=== PATIENT | female | born 1940 | race Caucasian/White ===

== ENCOUNTER 2018-05-01 10:45 | Outpatient (CLI) | payer MEDICARE | END 2018-05-01 10:46 | disposition home or self-care (01) | LOC: BICMAMMO 10:45 | PROVIDERS: ATTEND Family Medicine | DX: Z12.31 Encounter for screening mammogram for malignant neoplasm of breast (principal); Z80.3 Family history of malignant neoplasm of breast | CPT/HCPCS: 77063; 77067 ==

== ENCOUNTER 2018-08-02 09:30 | Inpatient (IN) | payer MEDICARE ==
[2018-08-02 10:24] VITALS: BMI 25.0
[2018-08-07] MEDS ORDERED: Fentanyl 250 MCG/5 ML VIAL ONE (06:24)
[2018-08-07] MEDS ORDERED: Sodium Chloride 0.9% 100 ML ONE (06:32)
[2018-08-07] MEDS ORDERED: cefOXitin 2 GM VIAL ONE ×2 (06:32→09:27)
[2018-08-07] MEDS ORDERED: Dexamethasone 4 mg/ml Vial ONE (06:39)
[2018-08-07] MEDS ORDERED: Fentanyl 100 MCG/2 ML VIAL ONE (06:39)
[2018-08-07] MEDS ORDERED: Midazolam HCl 2 mg/2 ml Vial ONE (06:39)
[2018-08-07 07:19] LABS: Anion Gap 13 mmol/L (10-20); BUN (Urea Nitrogen) 13 mg/dL (9.8-20.1); Calc. Creatinine Clearance 43 mL/min (70-130); Calcium 9.8 mg/dL (7.8-10.44); Carbon Dioxide 23 mmol/L (23-31); Chloride 106 mmol/L (98-107); Estimated GFR-MDRD 48; Glucose 103 mg/dL (83-110); Potassium 3.5 mmol/L (3.5-5.1); Sodium 138 mmol/L (136-145)
[2018-08-07] MEDS ORDERED: Promethazine HCl 25 MG/ML VIAL SLOW IVP PRN (09:03)
[2018-08-07] MEDS ORDERED: Promethazine HCl 25 MG/ML VIAL IM PRN ×2 (09:03→17:31)
[2018-08-07] MEDS ORDERED: HYDROmorphone 2 MG/ML VIAL SLOW IVP PRN (09:03)
[2018-08-07] MEDS ORDERED: Ondansetron HCl/PF 4 MG/2 ML Vial IVP PRN (09:03)
[2018-08-07] MEDS ORDERED: HYDROmorphone 2 MG/ML VIAL ONE (10:22)
[2018-08-07] MEDS ORDERED: Bupivacaine HCl 0.5%/Epinephrine 1:200,000/PF 30 ml Vial ONE (13:32)
[2018-08-07] MEDS ORDERED: PROPOFOL 200 MG/20 ML VIAL ONE (13:37)
[2018-08-07] MEDS ORDERED: ePHEDrine/0.9% NaCl/PF SYRINGE 50 mg/10 ml ONE (13:37)
[2018-08-07] MEDS ORDERED: Glycopyrrolate 0.2 MG/ML 5 ML SYRINGE ONE (13:37)
[2018-08-07] MEDS ORDERED: Lidocaine 1% PF 5 ML VIAL ONE (13:37)
[2018-08-07] MEDS ORDERED: Ketorolac Tromethamine 30 MG/ML VIAL ONE (13:37)
[2018-08-07] MEDS ORDERED: Ondansetron PF 4 MG/2 ML Vial ONE (13:37)
[2018-08-07] MEDS ORDERED: PHENYLEPHRINE-NS 100 MCG/ML 10 ML SYRINGE ONE (13:37)
[2018-08-07] MEDS ORDERED: Dexamethasone 20 MG/5 ML VIAL ONE (13:37)
[2018-08-07] MEDS ORDERED: hydrALAZINE 20 MG/ML VIAL SLOW IVP PRN (17:31)
[2018-08-07] MEDS ORDERED: Ondansetron PF 4 MG/2 ML Vial IVP PRN (17:31)
[2018-08-07] MEDS: Acetaminophen 1,000 MG in Premix Bag 1 BAG IVPB SCH ×2 (17:56→23:27)
[2018-08-07] MEDS: D5 1/2 NS w/20 mEq KCL 1,000 ML IV SCH (17:59)
[2018-08-07] MEDS: cefOXitin 2 GM in Sodium Chloride 0.9% 100 ML IVPB SCH (18:17)
[2018-08-07] MEDS: Famotidine 20 MG TAB PO SCH (20:40)
[2018-08-07] MEDS: Famotidine/PF 20 mg/2ml Vial SLOW IVP SCH (20:40)
[2018-08-07] MEDS: Fentanyl 100 MCG/2 ML VIAL SLOW IVP PRN (20:41)
[2018-08-08] MEDS: Fentanyl 100 MCG/2 ML VIAL SLOW IVP PRN ×2 (01:01→20:29)
[2018-08-08] MEDS: cefOXitin 2 GM in Sodium Chloride 0.9% 100 ML IVPB SCH (02:06)
[2018-08-08] MEDS: D5 1/2 NS w/20 mEq KCL 1,000 ML IV SCH ×2 (02:07→11:49)
[2018-08-08] MEDS: Acetaminophen 1,000 MG in Premix Bag 1 BAG IVPB SCH ×2 (05:09→11:54)
[2018-08-08 05:49] LABS: #Basophils 0.1 thou/uL (0.0-0.2); #Lymphocytes 1.8 thou/uL (1.20-3.40); #Neutrophils 12.9 thou/uL (1.40-6.50); %Basophils 0.3 % (0.0-1.0); %Eosinophils 0.1 % (0.0-10.0); %Lymphocytes 11.2 % (21.0-51.0); %Monocytes 6.5 % (0.0-10.0); %Neutrophils 81.9 % (42.0-75.0); Hemoglobin 10.8 g/dL (12.0-16.0); Mean Corpuscular HGB CONC 32.4 g/dL (32.0-36.0); Mean Corpuscular Volume 95.8 fL (78.0-98.0); Platelet Count 240 thou/uL (130-400); Red Blood Cell (RBC) Count 3.48 mill/uL (4.20-5.40); White Blood Cell (WBC) Count 15.8 thou/uL (4.8-10.8)
[2018-08-08 06:12] LABS: Anion Gap 9 mmol/L (10-20); BUN (Urea Nitrogen) 15 mg/dL (9.8-20.1); Calc. Creatinine Clearance 39 mL/min (70-130); Calcium 8.5 mg/dL (7.8-10.44); Carbon Dioxide 22 mmol/L (23-31); Chloride 108 mmol/L (98-107); Estimated GFR-MDRD 43; Glucose 159 mg/dL (83-110); Potassium 4.4 mmol/L (3.5-5.1); Sodium 135 mmol/L (136-145)
[2018-08-08] MEDS ORDERED: Enoxaparin Sodium 40 MG/0.4 ML SYRINGE SC SCH (09:00)
--- NOTE | 2018-08-08 11:34 | PRG ---
DATE OF SERVICE: 08/08/2018 SUBJECTIVE: Postop day #1, subtotal colectomy. The patient has mild nausea. For the most part, she is clear liquids. She did not ambulate in the billings yesterday evening and has not yet today. However, she has been up in the room without difficulty. Her pain is controlled. PHYSICAL EXAMINATION: VITAL SIGNS: Pulse is 70, respirations 18, temperature is 97.5, blood pressure 139/64. ABDOMEN: Soft, minimally distended. Wounds are healing well. LABORATORY DATA: White cell count is 15, hemoglobin is 10, platelet count is 240. Sodium 135, creat inine 1.21, glucose 159. ASSESSMENT: Postop day #1, subtotal colectomy. PLAN: She needs to be in the billings ambulating. We will advance to full liquid diet this evening for dinner if she is tolerating the clears . Hold Lovenox today. She had a slight decrease in her hemoglobin overnight.
[2018-08-08] MEDS: Famotidine 20 MG TAB PO SCH (20:29)
[2018-08-08] MEDS: Famotidine/PF 20 mg/2ml Vial SLOW IVP SCH (20:29)
[2018-08-09] MEDS: D5 1/2 NS w/20 mEq KCL 1,000 ML IV SCH ×2 (02:13→03:42)
[2018-08-09 05:50] LABS: #Eosinphils 0.1 thou/uL (0.0-0.7); #Lymphocytes 1.6 thou/uL (1.20-3.40); #Monocytes 0.5 thou/uL (0.11-0.59); #Neutrophils 9.5 thou/uL (1.40-6.50); %Basophils 0.1 % (0.0-1.0); %Eosinophils 0.7 % (0.0-10.0); %Monocytes 4.6 % (0.0-10.0); %Neutrophils 80.6 % (42.0-75.0); Hemoglobin 10.2 g/dL (12.0-16.0); Mean Corpuscular HGB CONC 32.6 g/dL (32.0-36.0); Mean Corpuscular Hemoglobin 31.2 pg (27.0-31.0); Mean Corpuscular Volume 95.8 fL (78.0-98.0); Mean Platelet Volume 7.4 fL (7.4-10.4); Platelet Count 217 thou/uL (130-400); RBC Distribution Width 12.2 % (11.5-14.5); Red Blood Cell (RBC) Count 3.26 mill/uL (4.20-5.40); White Blood Cell (WBC) Count 11.7 thou/uL (4.8-10.8)
[2018-08-09 06:18] LABS: Anion Gap 9 mmol/L (10-20); BUN (Urea Nitrogen) 9 mg/dL (9.8-20.1); Calc. Creatinine Clearance 58 mL/min (70-130); Calcium 8.7 mg/dL (7.8-10.44); Carbon Dioxide 23 mmol/L (23-31); Chloride 111 mmol/L (98-107); Estimated GFR-MDRD 68; Glucose 116 mg/dL (83-110); Potassium 5.2 mmol/L (3.5-5.1); Sodium 138 mmol/L (136-145)
[2018-08-09] MEDS: Fentanyl 100 MCG/2 ML VIAL SLOW IVP PRN (08:35)
[2018-08-09] MEDS ORDERED: Enoxaparin Sodium 40 MG/0.4 ML SYRINGE SC SCH (10:00)
[2018-08-09] MEDS ORDERED: HYDROcodone/Acetaminophen 7.5/325 mg Tablet PO PRN (11:03)
[2018-08-09 11:48] VITALS: BP 158/78; TEMP 97.6
--- NOTE | 2018-08-10 07:54 | OP ---
DATE OF PROCEDURE: 08/07/2018 PREOPERATIVE DIAGNOSES: Large colon polyp, sigmoid and hepatic flexure unresectable by colonoscopy. POSTOPERATIVE DIAGNOSES: Large colon polyp, sigmoid and hepatic flexure unresectable by colonoscopy . PROCEDURE: Subtotal colectomy with ileosigmoid anastomosis and mobilization of splenic flexure. SURGEON: Dr. Ho Carlisle ANESTHESIA: General. ESTIMATED BLOOD LOSS: 200 mL. COMPLICATIONS: None. BRIEF HISTORY: The patient is a 77-year-old female who on colonoscopy was revealed to have large unr esectable polyps in both the descending colon as well as the hepatic flexure of colon. Risks, benefi ts, alternatives were discussed. She gave consent for surgery. She underwent mechanical and antibio tic bowel prep. PROCEDURE IN DETAIL: The patient was taken to the operating room and placed supine on the table. Af ter general anesthetic was obtained, a Hyde was placed. She was placed in lithotomy position. Her abdomen is prepped and draped in a sterile fashion. Left subcostal 5 mm trocar placed in the usual f ashion. High-flow pneumoperitoneum was obtained. Lower abdominal 5 mm ports as well as a 12 mm port are placed under direct visualization. The patient had prior significant adhesions in her pelvis fr om likely chronic diverticulitis or diverticulosis. Decision was made to open. Midline incision is made, right colon mobilized along the white line of Toldt. The hepatic flexure mobilized revealing t he blue tattooed specimen. Transverse colon was mobilized by taking the lesser omentum off of the tr ansverse colon, splenic flexure mobilized in the usual fashion. Left colon mobilized along the white line of Toldt past the area of blue tattoo in the descending colon. VILMA-75 stapler was fired across the descending colon just distal, VILMA 75 stapler was fired across the terminal ileum. All mesenteri c vessels were taken using Mary clamp and silk ties. The small bowel was able to be brought up in a n isoperistaltic fashion against the descending colon. Enterotomy was made on the colotomy. A coloto my was made on the end of the descending colon stump as well as more proximal antimesenteric surface of the small bowel. Isoperistaltic anastomosis is performed using VILMA-75 stapler. The common entero won was closed using a transverse 2-0 Vicryl suture. Serosal layer was then closed as well on top. The mesenteric defect is closed. Crotch stitch was placed using silk suture. There was no tension on the anastomosis, no evidence of ischemia. All instrument counts, needle counts, lap counts were c orrect. Midline fascia closed using #1 PDS from the top and the bottom and tied in the middle. Subc utaneous tissues are irrigated using sterile solution and the skin incisions closed using 3-0 Vicryl, 4-0 Monocryl, and Dermabond. The patient was en route to recovery in stable condition. All sponge counts, needle counts, lap counts were correct.
[2018-08-10] MEDS ORDERED: Enoxaparin Sodium 40 MG/0.4 ML SYRINGE SC SCH (09:00)
== END 2018-08-09 14:15 | disposition home or self-care (01) | DRG 331 ==
LOC: SURG A 08-07 05:54 → SJJU 08-07 17:15 → SURG A 08-08 14:46 → SJJU 08-08 14:50
PROVIDERS: ADMIT Surgery; ATTEND Surgery
PROC: 0DBM0ZZ Excision of Descending Colon, Open Approach (ICD-10-PCS; principal; 2018-08-07)
DX: K63.5 Polyp of colon (principal)
CPT/HCPCS: 36415; 80048; 85025; 88307; J0131; J0694; J1100; J1170; J1650; J2250; J3010; J7050

== ENCOUNTER 2018-08-02 10:07 | Outpatient (CLI) | payer MEDICARE ==
[2018-08-02 12:50] LABS: #Basophils 0.1 thou/uL (0.0-0.2); #Eosinphils 0.2 thou/uL (0.0-0.7); #Lymphocytes 2.8 thou/uL (1.20-3.40); #Monocytes 0.4 thou/uL (0.11-0.59); #Neutrophils 2.9 thou/uL (1.40-6.50); %Basophils 1.5 % (0.0-1.0); %Eosinophils 2.9 % (0.0-10.0); %Lymphocytes 43.9 % (21.0-51.0); %Monocytes 6.5 % (0.0-10.0); %Neutrophils 45.2 % (42.0-75.0); Hemoglobin 14.1 g/dL (12.0-16.0); Mean Corpuscular HGB CONC 31.7 g/dL (32.0-36.0); Mean Corpuscular Hemoglobin 30.2 pg (27.0-31.0); Mean Corpuscular Volume 95.5 fL (78.0-98.0); Platelet Count 329 thou/uL (130-400); RBC Distribution Width 12.2 % (11.5-14.5); Red Blood Cell (RBC) Count 4.65 mill/uL (4.20-5.40); White Blood Cell (WBC) Count 6.3 thou/uL (4.8-10.8)
[2018-08-02 13:01] LABS: Hemoglobin A1c 5.4 % (4.0-6.0)
--- NOTE | 2018-08-02 15:40 | EKG ---
Test Reason : Blood Pressure : / mmHG Vent. Rate : 057 BPM Atrial Rate : 057 BPM P-R Int : 186 ms QRS Dur : 072 ms QT Int : 416 ms P-R-T Axes : 061 044 055 degrees QTc Int : 404 ms Sinus bradycardia Otherwise normal ECG No previous ECGs available Confirmed by IAN SMITH ([id number]) on 08/02/2018 3:40:26 PM Referred By: FRANSISCO Confirmed By:IAN SMITH
== END 2018-08-02 10:08 | disposition home or self-care (01) ==
LOC: LABBT 10:07
PROVIDERS: ATTEND Surgery
DX: Z01.818 Encounter for other preprocedural examination (principal); K63.5 Polyp of colon
CPT/HCPCS: 83036; 85025; 93005; 93010

== ENCOUNTER 2018-12-04 12:00 | Outpatient (CLI) | payer MEDICARE ==
--- NOTE | 2018-12-04 12:57 | RAD ---
LEFT HEEL TWO VIEWS: HISTORY: Pain in the left heel. FINDINGS: There are plantar and posterior calcaneal spurs. The calcaneus is otherwise intact. POS: [facility]
== END 2018-12-04 12:01 | disposition home or self-care (01) ==
LOC: BICRAD 12:00
PROVIDERS: ATTEND Podiatrist
DX: M79.672 Pain in left foot (principal)

== ENCOUNTER 2018-12-13 21:36 | Observation (INO) | payer MEDICARE ==
[2018-12-13 21:52] LABS: #Basophils 0.1 thou/uL (0.0-0.2); #Eosinphils 0.1 thou/uL (0.0-0.7); #Lymphocytes 3.2 thou/uL (1.20-3.40); #Monocytes 0.6 thou/uL (0.11-0.59); #Neutrophils 4.3 thou/uL (1.40-6.50); %Basophils 0.8 % (0.0-1.0); %Eosinophils 0.7 % (0.0-10.0); %Lymphocytes 39.5 % (21.0-51.0); %Monocytes 6.9 % (0.0-10.0); %Neutrophils 52.1 % (42.0-75.0); Mean Corpuscular HGB CONC 33.5 g/dL (32.0-36.0); Mean Corpuscular Hemoglobin 30.3 pg (27.0-31.0); Mean Corpuscular Volume 90.4 fL (78.0-98.0); Mean Platelet Volume 5.4 fL (7.4-10.4); Platelet Count 283 thou/uL (130-400); White Blood Cell (WBC) Count 8.2 thou/uL (4.8-10.8)
[2018-12-13 22:07] LABS: ALT (SGPT) 16 U/L (8-55); AST (SGOT) 20 U/L (5-34); Albumin 4.3 g/dL (3.4-4.8); Alkaline Phosphatase 53 U/L (40-150); Anion Gap 16 mmol/L (10-20); BUN (Urea Nitrogen) 18 mg/dL (9.8-20.1); Bilirubin, Total 0.4 mg/dL (0.2-1.2); Calc. Creatinine Clearance 0 mL/min (70-130); Calcium 9.8 mg/dL (7.8-10.44); Carbon Dioxide 20 mmol/L (23-31); Chloride 109 mmol/L (98-107); Estimated GFR-MDRD 61; Globulin 2.7 g/dL (2.4-3.5); Glucose 102 mg/dL (83-110); Potassium 4.4 mmol/L (3.5-5.1); Sodium 141 mmol/L (136-145)
[2018-12-13 22:29] LABS: Bilirubin Negative (Negative); Blood, Urine Negative (Negative); Clarity Clear (Clear); Glucose, Urine (Dipstick) Negative (Negative); Leukocyte Negative (Negative); Nitrite Negative (Negative); Protein, Urine (Dipstick) Negative (Neg-Trace); Urobilinogen 0.2 mg/dL (0.2-1.0)
[2018-12-13 22:30] LABS: Specific Gravity, Urine 1.004 (1.002-1.036)
[2018-12-13] MEDS ORDERED: Aspirin 325 MG TAB ONE (22:30)
--- NOTE | 2018-12-13 22:44 | CT ---
NONCONTRAST CT HEAD: 12/13/18 HISTORY: Slurred speech. COMPARISON: None available. FINDINGS: There are postsurgical changes related to left calvarial craniotomy defect. Aneurysm clips are seen a t the medial aspect left middle cranial fossa resulting in significant artifact in this region. Howev er, there is no evidence of an acute cortical infarction, hemorrhage, mass effect, or midline shift. A few minimal areas of diminished attenuation are seen in the periventricular white matter which are nonspecific but likely reflective of mild chronic small vessel ischemic changes. The ventricular syst em is normal in size, shape and position. The visualized paranasal sinuses are clear. The mastoid air cells are not well pneumatized bilaterall y. No calvarial fracture is seen. There are calcifications seen within the scalp soft tissues. IMPRESSION: 1. No acute intracranial abnormalities demonstrated. 2. Postsurgical changes related to left calvarial craniotomy defect and prior aneurysm clipping with aneurysm clips seen in the left middle cranial fossa medially. POS: JESSICA
--- NOTE | 2018-12-13 23:29 | RAD ---
PORTABLE AP CHEST X-RAY 12/13/18 HISTORY: Slurred speech. FINDINGS: The cardiac silhouette and pulmonary vasculature are within normal limits. The lungs are clear. Degen erative changes seen in the spine. Vascular calcifications seen in the thoracic aorta. IMPRESSION: No acute cardiopulmonary process. POS: JESSICA
[2018-12-14 04:20] VITALS: BMI 24.3
[2018-12-14] MEDS ORDERED: hydrALAZINE 20 MG/ML VIAL SLOW IVP PRN (08:15)
[2018-12-14] MEDS ORDERED: HYDROcodone/Acetaminophen 5/325 mg Tablet PO PRN (08:15)
[2018-12-14] MEDS ORDERED: Acetaminophen 325 MG TAB PO PRN (08:15)
[2018-12-14] MEDS ORDERED: Zolpidem Tartrate 5 MG TAB PO PRN (08:15)
--- NOTE | 2018-12-14 08:59 | HP ---
HISTORY OF PRESENT ILLNESS: This is a 78-year-old white female with a history of hypertension, hyperlipidemia, who has declined all medications in the past. She also has not been taking her aspirin as recommended daily. She also has a history of significant hyperlipidemia and has declined all statin treatment. She has tried for years to control it by diet, but has been unsuccessful. Her last cholesterol was 262 approximately 6 months ago. She was doing well until yesterday evening at dinner. She had prepared dinner. She was sitting down, drinking a glass of wine and suddenly became confused and had slurred speech. Her immediately brought her to the hospital, where her symptoms resolved completely and she returned back to normal. She complained of no headache, no nausea, no vomiting, no chest pain, no shortness of breath. This episode lasted briefly and resolved. PAST MEDICAL HISTORY: 1. Hyperlipidemia, declining any treatment. 2. History of cerebral aneurysm, status post craniotomy and surgical repair. 3. History of mastoid surgery. 4. History of cleft palate. 5. Hearing loss. PAST SURGICAL HISTORY: Include multiple ear surgeries, cleft palate repair, craniotomy, T and A. FAMILY HISTORY: Father with liver cancer and hypertension. Mother with a CVA. Siblings with Hodgkin. She has a maternal uncle with breast cancer. SOCIAL HISTORY: She stopped smoking in 2016. She has a long history of tobacco use. She does drink alcohol occasionally. She is . She has 2 kids, one son and one daughter, who committed suicide. MEDICATIONS: 1. Protonix 40 daily. 2. Aspirin 81 daily, which she has not been taking. ALLERGIES: TO PENICILLIN, DILANTIN, AND PHENOBARBITAL. REVIEW OF SYSTEMS: As above. PHYSICAL EXAMINATION: VITAL SIGNS: Blood pressure 175/79, temperature 97.6, pulse 75, respirations 16, and pulse ox 95%. GENERAL: The patient in no acute distress. HEENT: Clear. Speech is clear. Throat clear. NECK: Supple. HEART: Regular rate and rhythm. No murmurs. LUNGS: Clear. ABDOMEN: Soft, nontender. EXTREMITIES: With no cyanosis, clubbing, or edema. NEURO: Cranial nerves II through XII intact. Normal sensory and motor bilaterally. Normal finger to nose. Normal rapid alternating movements. DTRs symmetric. LABORATORY DATA: CT head unremarkable. White count 8.2, H and H are 13 and 38. Sodium 141, potassium 4.4, chloride 109, CO2 of 20, creatinine 0.9, BUN 18, and glucose 102. Troponin I of 0.013. Urine negative. ASSESSMENT: 1. Transient ischemic attack. 2. Uncontrolled hypertension, who has declined treatment. 3. Hyperlipidemia. Again declined treatment for many years. 4. Noncompliant with daily aspirin recommended. 5. History of brain aneurysm, status post surgical repair. 6. History of cleft palate. PLAN: 1. Consult Neurology. 2. The patient is willing to start statins. It is unusual she has always declined this in the past. We will begin Crestor 20 daily. We will also begin antihypertensives. 3. Initiate aspirin 325 daily. 4. Carotid Doppler. 5. RPR, B12, and folate. 6. The patient may not be a candidate for MRI due to her surgical clips in her brain. Job ID: [id number]
[2018-12-14] MEDS: Aspirin 325 mg Enteric Coated Tablet PO SCH (09:17)
[2018-12-14] MEDS: Famotidine 20 MG TAB PO SCH ×2 (09:17→21:37)
[2018-12-14] MEDS: Enoxaparin Sodium 40 MG/0.4 ML SYRINGE SC SCH (09:18)
[2018-12-14 10:37] LABS: Syphilis Antibody Nonreactive (Nonreactive); Syphilis Antibody Index 0.07 S/CO (<1.00 Non-Reactive)
[2018-12-14 10:50] LABS: Folate (Folic Acid) 9.7 ng/mL (7.0-31.4)
--- NOTE | 2018-12-14 12:01 | ULT ---
BILATERAL CAROTID DUPLEX ULTRASOUND: HISTORY: TIA. TECHNIQUE: Evans scale ultrasound with color flow and spectral Doppler imaging of the extracranial carotid artery systems is performed bilaterally. FINDINGS: There is mild plaque formation on either side. The peak systolic velocity in the right ICA measures 124 cm/s with an end-diastolic velocity of 30 cm /s and a systolic ratio of 1.24. The peak systolic velocity in the left ICA measures 88 cm/s with an end-diastolic velocity of 22 cm/s and a systolic ratio of 1.19. Flow in both vertebral arteries remains antegrade. IMPRESSION: No evidence of hemodynamically significant stenosis. POS: OFF
[2018-12-14] MEDS ORDERED: ISOVUE-370 76%-LOCM 1 ML ONE (12:44)
--- NOTE | 2018-12-14 13:04 | CON ---
DATE OF CONSULTATION: 12/14/2018 CHIEF COMPLAINT: Dizziness. HISTORY OF PRESENT ILLNESS: History was given to me by her , who was in the room. The patient stated she was not aware what happened. She woke up at 7:30 a.m. and had a small glass of wine. She worked in the sewing room. She made supper. She was sitting with her face in the hands stating she felt drunk. told her let us go to the ER, you are not drunk, checked her blood pressure, it was 112/62. They brought her to the ER. She did not have any history of weakness, numbness, or visual disturbance or droopiness of face. In the ER, she had a CT scan, which was negative for acute stroke and she also had lab work, which was within normal limits. The patient did not have any seizures or episodes such as seizure-like activity. PREVIOUS MEDICAL HISTORY: The patient has history of cerebral aneurysm. She had aneurysm, clip placed many years ago, location not clear to me. The patient has never had problems with it. Hyperlipidemia, history of cerebral aneurysm, status post craniotomy, surgical repair, mastoid surgery, cleft palate surgery, and hearing loss. FAMILY HISTORY: Positive for CVA in her mother and brother and there is a family history of cancer in her sister, who had Hodgkin lymphoma and her maternal aunt had breast cancer. SOCIAL HISTORY: She stopped smoking in 2015. She does drink alcohol occasionally. She is , lives with her . One daughter committed suicide. She has two children. Son is alive. MEDICATIONS: At home; 1. Protonix 40 mg per day. 2. Aspirin 81 mg per day, she is not very compliant with that. ALLERGIES: SHE IS ALLERGIC TO PENICILLIN, DILANTIN, AND PHENOBARBITAL. REVIEW OF SYSTEMS: PULMONARY: Negative for shortness of breath or cough. CARDIOVASCULAR: Negative for irregular heart rate or chest pain or palpitations. GI: Negative for any nausea, vomiting, or diarrhea. NEUROLOGICAL: Positive for a spell, where she felt drunk. PSYCHIATRIC: Negative for depression or anxiety. DERMATOLOGIC: Negative for rash. LABORATORY DATA: White count 8.2, hemoglobin 13, hematocrit 38.9, and platelets 283. Chemistry showed sodium 141, potassium 4.4, chloride 109, bicarbonate 20, BUN 18, creatinine 0.9. Urine negative. Her CT of the head showed evidence of old aneurysm, clip in the left middle cranial fossa. PHYSICAL EXAMINATION: VITAL SIGNS: Blood pressure is 187/83, pulse is 64, temperature 97.4. GENERAL APPEARANCE: Well-built, well-nourished lady, who is comfortable in bed. She seems pretty active and cheerful. CHEST: Clear vesicular breathing. CARDIOVASCULAR: S1 and S2 heard. No murmurs. ABDOMEN: Soft. NEUROLOGICAL: Higher intellectual functions. Normal orientation to time, place, and person. Appropriate conversation. Cranial nerves 2 through 12. Pupils 2 mm, reactive to light. No facial asymmetry noted. Normal sensation of face. Normal elevation of palate. Tongue midline. Normal hearing bilaterally. Motor, bulk normal. Tone normal. Strength 5/5 in upper and lower extremities. No pronator drift was noted. Muscle groups tested are iliopsoas, hamstrings, quadriceps, ankle dorsiflexion, plantar flexion, deltoid, biceps, triceps, wrist extension, flexion, finger extension and flexion bilaterally. Deep tendon reflexes were 1+ throughout. Sensory and cerebellar normal. IMPRESSION: The patient is a 78-year-old lady with what seems to be more of spell of dizziness. She felt drunk. Her blood pressure was 112/62. There was no other neurological symptoms. She has prior history of aneurysm with aneurysm clip. The event itself sounds nonspecific. Differential diagnosis includes orthostatic hypotension versus vertebrobasilar insufficiency. It could also be possible related to inner ear dysfunction; however, the patient did not give me history of rotational component. Her neurological examination is normal. TREATMENT, PLAN, AND RECOMMENDATIONS: I will request a CT angiogram of the head and neck area to make sure there is no vertebrobasilar insufficiency or abnormalities in the vertebrobasilar system. I will follow up the patient with you tomorrow. Job ID: [id number]
--- NOTE | 2018-12-14 13:20 | CT ---
CT HEAD WITHOUT IV CONTRAST: CT ANGIOGRAM HEAD WITH IV CONTRAST AND 3D RECONSTRUCTIONS: CT ANGIOGRAM NECK WITH IV CONTRAST AND 3D RECONSTRUCTIONS: 12/14/2018 HISTORY: Slurred speech on admission, on 12/13/2018. History of prior aneurysm clipping/repair. COMPARISON: Noncontrast CT head on 12/13/2018. FINDINGS: CT HEAD: Again noted are postsurgical changes related to a left calvarial craniotomy defect with ane urysm clipping present with aneurysm clips seen at the medial aspect of the left middle cranial cassandra a, resulting in artifact, which limits evaluation in this region. Mild scattered areas of diminished attenuation are again seen in the periventricular white matter, li marianela reflective of mild chronic small vessel ischemic changes. There is no evidence of an acute alla ical infarction, hemorrhage, mass effect, or midline shift. The ventricular system is normal in size , shape, and position. There has been no interval change compared to recent study on 12/13/2018. CT ANGIOGRAM HEAD: There are aneurysm clips seen at the medial aspect, left middle cranial fossa, wh ich are in the region of the PCOM position. This partially obscures this region. However, the bilat eral anterior cerebral, as well as middle cerebral arteries, is patent. A small portion of the left posterior cerebral artery is obscured due to artifact from the aneurysm clip, but the left posterior cerebral artery proximal and distal to the level of the clip are patent. The right posterior cerebra l artery is patent. The distal vertebral arteries and basilar artery are patent. No aneurysm is seen, within the limitations of the technique of this exam. CT ANGIOGRAM NECK: Vascular calcifications are seen in the aortic arch. There is a common origin of the left common carotid artery and innominate artery, which are otherwise patent. The visualized po rtions of the left subclavian artery are patent. The right subclavian artery is patent. The bilateral common carotid arteries are patent. The bilateral internal and external carotid arteri es are patent, without focal stenosis, according to NASCET criteria. The internal carotid arteries a re mildly tortuous bilaterally. The vertebral arteries are codominant and patent bilaterally. The thyroid gland is heterogeneous in appearance with several small, hypodense nodules within each lo be of the thyroid gland, measuring less than 1 cm. There is minimal biapical pleural and parenchymal scarring. The visualized upper lung zones are othe rwise clear. There is partial visualization of a calcified right hilar lymph node. Multilevel degenerative changes are seen in the cervical spine with large bridging osteophytes at mul tiple levels. Bridging osteophytes are also seen anterior to the thoracic spine, with calcification of the anterior and longitudinal ligament. IMPRESSION: 1. Obscuration of a small, short segment of the left posterior cerebral artery due to aneurysm clips near the region of posterior communicating artery position, left posterior cerebral artery. The lef t posterior cerebral artery is otherwise patent. 2. The [place] and the remainder of the vertebrobasilar system is patent without focal sten osis or branch occlusion seen. 3. No aneurysm is seen within the limitations of the technique of this examination. 4. Patent bilateral internal carotid arteries, according to NASCET criteria. 5. Patent and codominant bilateral vertebral arteries. 6. Multinodular thyroid gland. 7. Mild chronic small vessel ischemic changes without evidence of an acute cortical infarction visua lized. 8. Left craniotomy defect and evidence of prior aneurysm clipping, as described above. 9. Multilevel degenerative changes in the cervical spine. POS: CHICHI
[2018-12-14] MEDS ORDERED: Rosuvastatin 20 MG TAB PO SCH (21:00)
[2018-12-15 05:15] LABS: #Basophils 0.1 thou/uL (0.0-0.2); #Eosinphils 0.1 thou/uL (0.0-0.7); #Lymphocytes 2.9 thou/uL (1.20-3.40); #Monocytes 0.5 thou/uL (0.11-0.59); %Basophils 0.7 % (0.0-1.0); %Eosinophils 1.1 % (0.0-10.0); %Lymphocytes 38.5 % (21.0-51.0); %Monocytes 6.6 % (0.0-10.0); %Neutrophils 53.1 % (42.0-75.0); Hemoglobin 12.7 g/dL (12.0-16.0); Mean Corpuscular HGB CONC 32.6 g/dL (32.0-36.0); Mean Corpuscular Hemoglobin 30.2 pg (27.0-31.0); Mean Corpuscular Volume 92.6 fL (78.0-98.0); Mean Platelet Volume 6.3 fL (7.4-10.4); Platelet Count 316 thou/uL (130-400); RBC Distribution Width 13.5 % (11.5-14.5); Red Blood Cell (RBC) Count 4.19 mill/uL (4.20-5.40); White Blood Cell (WBC) Count 7.4 thou/uL (4.8-10.8)
[2018-12-15 05:39] LABS: Anion Gap 11 mmol/L (10-20); BUN (Urea Nitrogen) 19 mg/dL (9.8-20.1); Calc. Creatinine Clearance 53 mL/min (70-130); Calcium 9.1 mg/dL (7.8-10.44); Carbon Dioxide 24 mmol/L (23-31); Cardiac Risk 2.6 (Less than 4.5); Chloride 109 mmol/L (98-107); Cholesterol 229 mg/dl (< 200 Desired); Estimated GFR-MDRD 64; Glucose 101 mg/dL (83-110); HDL Cholesterol 87 mg/dL (>60 Neg Risk); LDL Cholesterol, Calculated 126 mg/dL; Potassium 4.3 mmol/L (3.5-5.1); Sodium 140 mmol/L (136-145); Triglycerides 82 mg/dL (Less than 150)
[2018-12-15] MEDS: Aspirin 325 mg Enteric Coated Tablet PO SCH (08:37)
[2018-12-15] MEDS: Enoxaparin Sodium 40 MG/0.4 ML SYRINGE SC SCH (08:37)
[2018-12-15] MEDS: Famotidine 20 MG TAB PO SCH (08:37)
[2018-12-15] MEDS ORDERED: Lisinopril 20 MG TAB PO SCH (09:00)
[2018-12-15 15:29] VITALS: BP 121/59; TEMP 97.3
--- NOTE | 2018-12-15 18:53 | PRG ---
DATE OF TELEMEDICINE SERVICE: 12/15/2018 NURSING ASSISSTANT: ARLEN CHIEF COMPLAINT: Dizziness. HISTORY OF PRESENT ILLNESS: The patient is feeling much better today. stated that she has had prior history of hearing issues and she has experienced dizziness in the past due to ENT causes. Current report CT angiogram, a CTA was positive for aneurysm clips at the medial aspect of the left middle cranial fossa in the region of posterior communicating artery position, however, bilaterally ECAs , MCAs normal and the [place] and remainder of the vertebrobasilar system are patent without focal stenosis or branch occlusion. No aneurysms within the limitations of the technique of exam. Patent bilateral ICH according to NASCET criteria, patent and codominant bilateral vertebral arteries, mild chronic small-vessel disease without evidence of acute cortical infarction. LABORATORY WORKUP: White count 7.4, hemoglobin 12.7, hematocrit 38.8, and platelets are 316. Chemistry; sodium 140, potassium 4.3, chloride 109, bicarb 24, BUN 19 , and creatinine 0.86. OBJECTIVE: VITAL SIGNS: Temperature 97.3, pulse is 72, respiratory rate 16, O2 saturations 94, and blood pressure 121/59. NEUROLOGIC: Higher intellectual functions normal. Orientation to time, place, and person. Cranial nerves, normal extraocular movements. Tongue midline. No atrophy noted. Normal elevation of palate. Motor bulk, normal tone, normal strength 5/ 5 throughout upper and lower extremities. Cerebellar exam, [id number], [id number] are normal. IMPRESSION AND PLAN: The patient is a 78-year-old lady, who comes to the hospital with episode of dizziness. She also has hearing issues and ENT problems before and along with intracranial and cerebral aneurysm repair. The patient's neurological examination is normal. She does have history of ENT issues and had mastoid surgery and this could be contributory to her dizziness. At this time, I do not see any acute vascular issues such as a cerebrovascular accident or occluded carotid artery that needs attention. I advised the patient to continue her present medications and take aspirin 81 mg per day on a daily basis. I also advised her to see her ENT physician and her general doctor to see if she has fluctuations in blood pressure. Job ID: [id number] [facility]
--- NOTE | 2018-12-16 11:33 | DIS ---
DATE OF ADMISSION: 12/13/2018 DATE OF DISCHARGE: 12/15/2018 ADMIT DIAGNOSES: Dizziness and possible transient ischemic attack. DISCHARGE DIAGNOSIS: Dizziness, likely ENT related in etiology. HOSPITAL COURSE: The patient is a 78-year-old lady, patient of Dr. Dain Walker, who was brought in due to worsening dizziness. Workup for TIA and stroke. All the vasculature reviewed by the neurologist, Dr. Stacy, showed no evidence of new acute vascular issues regarding the brain, so she ruled out a neurologic condition or cerebrovascular condition including carotid arteries. Neurologically, her exam was normal on day of discharge. Plan is to discharge home to follow up with Dr. Pineda and plan to follow up with ENT. Job ID: [id number]
== END 2018-12-15 18:57 | disposition home or self-care (01) ==
LOC: SCSER 21:36 → 2SE 22:30
PROVIDERS: ADMIT Family Medicine; ATTEND Family Medicine
DX: R42 Dizziness and giddiness (principal); I10 Essential (primary) hypertension; E78.5 Hyperlipidemia, unspecified; H91.90 Unspecified hearing loss, unspecified ear; Z87.891 Personal history of nicotine dependence; Z79.899 Other long term (current) drug therapy; Z88.0 Allergy status to penicillin; Z88.8 Allergy status to other drugs, medicaments and biological substances; Z91.038 Other insect allergy status; Z91.14 Patient's other noncompliance with medication regimen; Z98.890 Other specified postprocedural states
CPT/HCPCS: 70450; 70496; 70498; 71045; 80048; 80053; 80061; 81003; 82607; 82746; 84484; 85025 ×2; 86780; 93005; 93306; 93880; 96372 ×2; 96374; 97139 ×2; 99285; G0378 ×2; 36415; J0360; J1650; Q9966

== ENCOUNTER 2019-05-20 12:21 | Outpatient (CLI) | payer MEDICARE ==
--- NOTE | 2019-05-21 06:48 | MMO ---
Bilateral MAMMO Bilat Screen [facility]. CLINICAL HISTORY: Patient is 78 years old and is seen for screening. The patient has the following family history of breast cancer: maternal aunt; cousin female and cousin female, 2nd cousin, daughter and first cousin and grandaughter of maternal aunt. The patient has no personal history of cancer. VIEWS: The views performed were: bilateral craniocaudal with tomosynthesis and bilateral mediolateral oblique with tomosynthesis. FILMS COMPARED: The present examination has been compared to a prior imaging study performed at [facility] on 05/01/2018. MAMMOGRAM FINDINGS: There are scattered fibroglandular densities. Finding 1: There are stable benign appearing calcifications seen in both breasts. Finding 2: There are stable focal asymmetries seen in both breasts. There are no suspicious masses, suspicious calcifications, or new areas of architectural distortion. IMPRESSION: THERE IS NO MAMMOGRAPHIC EVIDENCE OF MALIGNANCY. A ROUTINE FOLLOW-UP MAMMOGRAM IN 1 YEAR IS RECOMMENDED. THE RESULTS OF THIS EXAM WERE SENT TO THE PATIENT. ACR BI-RADS Category 2 - Benign finding MAMMOGRAPHY NOTE: 1. A negative mammogram report should not delay a biopsy if a dominant of clinically suspicious mass is present. 2. Approximately 10% to 15% of breast cancers are not detected by mammography. 3. Adenosis and dense breasts may obscure an underlying neoplasm. Reported by: MATT BARRIOS MD Electonically Signed: [id number]
== END 2019-05-20 12:22 | disposition home or self-care (01) ==
LOC: BICMAMMO 12:21
PROVIDERS: ATTEND Family Medicine
DX: Z12.31 Encounter for screening mammogram for malignant neoplasm of breast (principal); Z80.3 Family history of malignant neoplasm of breast
CPT/HCPCS: 77063; 77067

== ENCOUNTER 2019-06-24 10:56 | Outpatient (CLI) | payer MEDICARE ==
--- NOTE | 2019-06-24 11:50 | CT ---
CT of the paranasal sinuses 06/24/2019 HISTORY: Chronic sinusitis TECHNIQUE: Axial CT imaging at 3 mm intervals through the paranasal sinuses with coronal reformatted imaging. FINDINGS: There is an aneurysm clip in the supraclinoid region on the left. The frontal sinuses are well aerated. The maxillary sinuses, the sphenoid sinuses, and the ethmoid ai r cells are well aerated bilaterally. There is no mucosal thickening involving the paranasal sinuses and no air-fluid levels are noted. The outflow tract of bilateral maxillary sinuses and bilateral frontal sinuses is patent. No significant nasal septal deviation. No acute osseous abnormality is evident. IMPRESSION: No significant paranasal sinus disease.
== END 2019-06-24 10:57 | disposition home or self-care (01) ==
LOC: BICCT 10:56
PROVIDERS: ATTEND Allergy & Immunology
DX: J32.9 Chronic sinusitis, unspecified (principal)

== ENCOUNTER 2020-06-24 13:21 | Outpatient (CLI) | payer MEDICARE ==
--- NOTE | 2020-06-24 15:35 | MMO ---
Bilateral MAMMO Bilat Screen [facility]. CLINICAL HISTORY: Patient is 79 years old and is seen for screening. The patient has the following family history of breast cancer: maternal aunt; cousin female and cousin female, 2nd cousin, daughter and first cousin and grandaughter of maternal aunt. The patient has no personal history of cancer. VIEWS: The views performed were: bilateral craniocaudal with tomosynthesis and bilateral mediolateral oblique with tomosynthesis. FILMS COMPARED: The present examination has been compared to prior imaging studies performed at [facility] on 05/01/2018 and 05/20/2019, and at [facility] on 12/06/2011 and 07/14/2015. This study has been interpreted with the assistance of computer-aided detection. MAMMOGRAM FINDINGS: There are scattered fibroglandular densities. There are no suspicious masses, suspicious calcifications, or new areas of architectural distortion. IMPRESSION: THERE IS NO MAMMOGRAPHIC EVIDENCE OF MALIGNANCY. A ROUTINE FOLLOW-UP MAMMOGRAM IN 1 YEAR IS RECOMMENDED. THE RESULTS OF THIS EXAM WERE SENT TO THE PATIENT. ACR BI-RADS Category 1 - Negative MAMMOGRAPHY NOTE: 1. A negative mammogram report should not delay a biopsy if a dominant of clinically suspicious mass is present. 2. Approximately 10% to 15% of breast cancers are not detected by mammography. 3. Adenosis and dense breasts may obscure an underlying neoplasm. Reported by: CURT KAMARA MD Electonically Signed: [id number]
== END 2020-06-24 13:22 | disposition home or self-care (01) ==
LOC: BICMAMMO 13:21
PROVIDERS: ATTEND Family Medicine
DX: Z12.31 Encounter for screening mammogram for malignant neoplasm of breast (principal); Z80.3 Family history of malignant neoplasm of breast
CPT/HCPCS: 77063; 77067

== ENCOUNTER 2020-12-18 17:00 | Outpatient (CLI) | payer MEDICARE | END 2020-12-18 17:01 | disposition home or self-care (01) | LOC: SLEEPLAB 17:00 | PROVIDERS: ATTEND Family Medicine | DX: F51.9 Sleep disorder not due to a substance or known physiological condition, unspecified (principal); G47.33 Obstructive sleep apnea (adult) (pediatric); G47.10 Hypersomnia, unspecified; R53.82 Chronic fatigue, unspecified; R06.83 Snoring; G47.00 Insomnia, unspecified; I10 Essential (primary) hypertension; E66.9 Obesity, unspecified; Z68.29 Body mass index [BMI] 29.0-29.9, adult | CPT/HCPCS: 95806 ==

== ENCOUNTER 2021-07-13 09:42 | Outpatient (CLI) | payer MEDICARE | END 2021-07-13 09:43 | disposition home or self-care (01) | LOC: BICMAMMO 09:42 | PROVIDERS: ATTEND Family Medicine | DX: Z12.31 Encounter for screening mammogram for malignant neoplasm of breast (principal); Z80.3 Family history of malignant neoplasm of breast | CPT/HCPCS: 77063; 77067 ==

== ENCOUNTER 2022-05-31 15:37 | Outpatient (CLI) | payer MEDICARE, OTHER | END 2022-05-31 15:38 | disposition home or self-care (01) | LOC: CTENTCT 15:37 | PROVIDERS: ATTEND Otolaryngology Plastic Surgery within the Head & Neck | DX: J32.9 Chronic sinusitis, unspecified (principal) | CPT/HCPCS: 70486 ==

== ENCOUNTER 2023-08-08 13:09 | Outpatient (CLI) | payer OTHER | END 2023-08-08 13:10 | disposition home or self-care (01) | LOC: BICMAMMO 13:09 | PROVIDERS: ATTEND Family Medicine | DX: Z12.31 Encounter for screening mammogram for malignant neoplasm of breast (principal); Z80.3 Family history of malignant neoplasm of breast; Z91.89 Other specified personal risk factors, not elsewhere classified | CPT/HCPCS: 77063; 77067 ==